=== PATIENT | female | born 1985 | race American Indian/Alaskan Native ===

== ENCOUNTER 2017-07-06 20:09 | Emergency (ER) | payer MEDICAID ==
[2017-07-06 20:21] VITALS: BP 155/99
[2017-07-06] MEDS ORDERED: MOTRIN PO ONE (20:37)
== END 2017-07-07 00:50 | disposition left against medical advice (07) ==
LOC: ED 20:09
DX: J02.9 Acute pharyngitis, unspecified (principal); Z53.21 Procedure and treatment not carried out due to patient leaving prior to being seen by health care provider
CPT/HCPCS: 87116; 87430

== ENCOUNTER 2017-07-08 16:59 | Emergency (ER) | payer MEDICAID ==
[2017-07-08 17:07] VITALS: BP 143/91
--- NOTE | 2017-07-08 18:23 | Emergency Department Report ---
Blank Doc - Documentation Documentation: Patient is a 32-year-old female presenting with several days of sore throat. Patient states hurts to swallow. Patient has had minimal cough productive of yellow sputum once. Denies any fever body aches. Rapid strep be performed.
--- NOTE | 2017-07-08 18:57 | Emergency Department Report ---
ED ENT HPI - General Chief complaint: Sore Throat Stated complaint: SORE THROAT Time Seen by Provider: 07/08/17 18:14 Source: patient Mode of arrival: Ambulatory Limitations: No Limitations - History of Present Illness Initial comments: This is a 32-year-old female nontoxic, well nourished in appearance, no acute signs of distress presents to the ED with c/o of sore throat x4 days. Patient describes sore throat as aching with level of 8/10. Patient denies any drooling , hoarseness, fever, chills, nausea, vomiting, headache, stiff neck, numbness, tingling. She denies any allergies. Past medical history includes diabetes and hypertension. MD complaint: sore throat -: days(s) (4) Location: throat Severity: mild Severity scale (0 -10): 8 Quality: aching Consistency: constant Improves with: none Worsens with: swallowing Associated Symptoms: pain with swallowing, sore throat. denies: fever, cough, gum swelling, toothache, tinnitus, hearing loss, discharge from ear, rhinorrhea - Related Data Home Medications Medication Instructions Recorded Confirmed Last Taken Lisinopril [Zestril] 10 mg PO QDAY 01/22/13 07/28/13 Unknown metFORMIN [Glucophage] 07/28/13 07/28/13 Unknown Previous Rx's Medication Instructions Recorded Last Taken Type Ibuprofen [Motrin] 600 mg PO Q8H PRN #20 tablet 07/28/13 Unknown Rx Penicillin Vk [Veetids TAB] 2 tab PO BID #40 tablet 07/28/13 Unknown Rx Amoxicillin/K Clav Tab [Augmentin 1 tab PO Q12HR #20 tab 07/08/17 Unknown Rx 875 mg] Nystas/Diphen/Xyl Visc/Mylanta 30 ml PO Q6H PRN 10 Days ml 07/08/17 Unknown Rx [Magic Mouthwash] Allergies Allergy/AdvReac Type Severity Reaction Status Date / Time No Known Allergies Allergy Verified 07/08/17 17:06 ED Dental HPI - General Chief complaint: Sore Throat Stated complaint: SORE THROAT Time Seen by Provider: 07/08/17 18:14 Source: patient Mode of arrival: Ambulatory Limitations: No Limitations - Related Data Home Medications Medication Instructions Recorded Confirmed Last Taken Lisinopril [Zestril] 10 mg PO QDAY 01/22/13 07/28/13 Unknown metFORMIN [Glucophage] 07/28/13 07/28/13 Unknown Previous Rx's Medication Instructions Recorded Last Taken Type Ibuprofen [Motrin] 600 mg PO Q8H PRN #20 tablet 07/28/13 Unknown Rx Penicillin Vk [Veetids TAB] 2 tab PO BID #40 tablet 07/28/13 Unknown Rx Amoxicillin/K Clav Tab [Augmentin 1 tab PO Q12HR #20 tab 07/08/17 Unknown Rx 875 mg] Nystas/Diphen/Xyl Visc/Mylanta 30 ml PO Q6H PRN 10 Days ml 07/08/17 Unknown Rx [Magic Mouthwash] Allergies Allergy/AdvReac Type Severity Reaction Status Date / Time No Known Allergies Allergy Verified 07/08/17 17:06 ED Review of Systems ROS: Stated complaint: SORE THROAT Other details as noted in HPI Constitutional: denies: chills, fever Eyes: denies: eye pain, eye discharge, vision change ENT: throat pain. denies: ear pain Respiratory: denies: cough, shortness of breath, wheezing Cardiovascular: denies: chest pain, palpitations Endocrine: no symptoms reported Gastrointestinal: denies: abdominal pain, nausea, diarrhea Genitourinary: denies: urgency, dysuria, discharge Musculoskeletal: denies: back pain, joint swelling, arthralgia Skin: denies: rash, lesions Neurological: denies: headache, weakness, paresthesias Psychiatric: denies: anxiety, depression Hematological/Lymphatic: denies: easy bleeding, easy bruising ED Past Medical Hx - Past Medical History Previous Medical History?: No Hx Hypertension: Yes Hx Diabetes: Yes (gestational) - Surgical History Additional Surgical History: c section - Social History Smoking Status: Never Smoker Substance Use Type: None - Medications Home Medications: Home Medications Medication Instructions Recorded Confirmed Last Taken Type Lisinopril [Zestril] 10 mg PO QDAY 01/22/13 07/28/13 Unknown History Ibuprofen [Motrin] 600 mg PO Q8H PRN #20 tablet 07/28/13 Unknown Rx Penicillin Vk [Veetids TAB] 2 tab PO BID #40 tablet 07/28/13 Unknown Rx metFORMIN [Glucophage] 07/28/13 07/28/13 Unknown History Amoxicillin/K Clav Tab [Augmentin 1 tab PO Q12HR #20 tab 07/08/17 Unknown Rx 875 mg] Nystas/Diphen/Xyl Visc/Mylanta 30 ml PO Q6H PRN 10 Days ml 07/08/17 Unknown Rx [Magic Mouthwash] ED Physical Exam - General Limitations: No Limitations General appearance: alert, in no apparent distress - Head Head exam: Present: atraumatic, normocephalic - Eye Eye exam: Present: normal appearance Pupils: Present: normal accommodation - ENT ENT exam: Present: mucous membranes moist, TM's normal bilaterally, normal external ear exam - Expanded ENT Exam Expanded Ear exam: Present: normal external inspection Mouth exam: Present: normal external inspection, tongue normal. Absent: drooling, trismus, muffled voice, tongue elevation, laceration Teeth exam: Present: normal inspection Throat exam: Positive: tonsillar erythema, tonsillomegaly (2+), tonsillar exudate, other (uvula midline. No abscess or swelling. ). Negative: R peritonsillar mass, L peritonsillar mass - Neck Neck exam: Present: normal inspection, full ROM, lymphadenopathy (bialteral tonsils). Absent: tenderness, meningismus, thyromegaly - Respiratory Respiratory exam: Present: normal lung sounds bilaterally. Absent: respiratory distress, wheezes, rales, rhonchi, stridor, chest wall tenderness, accessory muscle use, decreased breath sounds, prolonged expiratory - Cardiovascular Cardiovascular Exam: Present: regular rate, normal rhythm, normal heart sounds. Absent: irregular rhythm, systolic murmur, diastolic murmur, rubs, gallop - GI/Abdominal GI/Abdominal exam: Present: soft, normal bowel sounds. Absent: distended, tenderness, guarding, rebound, rigid, diminished bowel sounds - Rectal Rectal exam: Present: deferred - Extremities Exam Extremities exam: Present: normal inspection, full ROM, normal capillary refill. Absent: tenderness, pedal edema, joint swelling, calf tenderness - Back Exam Back exam: Present: normal inspection, full ROM. Absent: tenderness, CVA tenderness (R), CVA tenderness (L), muscle spasm, paraspinal tenderness, vertebral tenderness, rash noted - Neurological Exam Neurological exam: Present: alert, oriented X3, CN II-XII intact, normal gait, reflexes normal - Psychiatric Psychiatric exam: Present: normal affect, normal mood - Skin Skin exam: Present: warm, dry, intact, normal color. Absent: rash ED Course Vital Signs 07/08/17 17:06 Temperature 98.3 F Pulse Rate 92 H Respiratory 18 Rate Blood Pressure 143/91 O2 Sat by Pulse 98 Oximetry - Reevaluation(s) Reevaluation #1: 07/08/17 18:57 Patient is speaking in full sentences with no signs of distress noted. - Consultations Consultation #1: 07/08/17 18:58 Patient has been consulted with Dr. Vera about patient history, physical exam , and labs and examined and screened patient and agrees to ED plan of care and discharge plan of care. ED Medical Decision Making - Medical Decision Making this is a 32-year-old female that presents with tonsillitis or exudate. Patient is stable and was examined by me. Patient received viscous lidocaine in the ED. Strep test obtained negative. But due to patient having tonsillitis with exudate also treat patient with Augmentin. There is no tonsillar swelling or abscess upon examination. Patient was instructed to Follow-up with a primary care doctor in 3-5 days or if symptoms worsen and continue return to emergency room as soon as possible. At time of discharge, the patient does not seem toxic or ill in appearance. No acute signs of distress noted. Patient agrees to discharge treatment plan of care. No further questions noted by the patient. Critical care attestation.: If time is entered above; I have spent that time in minutes in the direct care of this critically ill patient, excluding procedure time. ED Disposition Clinical Impression: Tonsillitis with exudate Disposition: DC-01 TO HOME OR SELFCARE Is pt being admited?: No Does the pt Need Aspirin: No Condition: Stable Instructions: Tonsillitis (ED), Amoxicillin/Clavulanate Potassium (By mouth) Additional Instructions: Follow-up with a primary care doctor in 3-5 days or if symptoms worsen and continue return to emergency room as soon as possible. Prescriptions: Amoxicillin/K Clav Tab [Augmentin 875 mg] 1 tab PO Q12HR #20 tab Nystas/Diphen/Xyl Visc/Mylanta [Magic Mouthwash] 30 ml PO Q6H PRN 10 Days ml PRN Reason: Sore Throat Referrals: PRIMARY CARE, [Primary Care Provider] - 3-5 Days KYRA KLEIN MD [Staff Physician] - 3-5 Days [facility] [Outside] - 3-5 Days [facility] [Outside] - 3-5 Days Forms: Work/School Release Form(ED)
[2017-07-08] MEDS ORDERED: LIDOCAINE VISCOUS 2% PO ONE (18:59)
[2017-07-08] MEDS ORDERED: MOTRIN PO ONE (18:59)
== END 2017-07-08 19:16 | disposition home or self-care (01) ==
LOC: ED 16:59
DX: J03.90 Acute tonsillitis, unspecified (principal); E11.9 Type 2 diabetes mellitus without complications; I10 Essential (primary) hypertension
CPT/HCPCS: 87116; 87430; 99283

== ENCOUNTER 2018-01-20 11:47 | Emergency (ER) | payer MEDICAID ==
[2018-01-20 11:56] VITALS: BP 168/101
== END 2018-01-20 13:30 | disposition left against medical advice (07) ==
LOC: ED 11:47
DX: M79.645 Pain in left finger(s) (principal); Z53.21 Procedure and treatment not carried out due to patient leaving prior to being seen by health care provider

== ENCOUNTER 2018-10-24 19:52 | Emergency (ER) | payer MEDICAID ==
[2018-10-24 20:45] VITALS: BP 173/113
--- NOTE | 2018-10-24 20:48 | Event Note ---
ED Screening Note Date of service: 10/24/18 Time: 20:44 ED Screening Note: 33 y/o female c/o left side of face . Elevated blood pressure 212/136. Tylenol 975mg This initial assessment/diagnostic orders/clinical plan/treatment(s) is/are subject to change based on patients health status, clinical progression and re- assessment by fellow clinical providers in the ED. Further treatment and workup at subsequent clinical providers discretion. Patient/guardian urged not to elope from the ED as their condition may be serious if not clinically assessed and managed. Initial orders include:
[2018-10-24] MEDS ORDERED: TYLENOL ONE (20:49)
[2018-10-24] MEDS ORDERED: TYLENOL PO ONE (20:56)
== END 2018-10-24 21:05 | disposition left against medical advice (07) ==
LOC: ED 19:52
DX: R03.0 Elevated blood-pressure reading, without diagnosis of hypertension (principal); Z53.21 Procedure and treatment not carried out due to patient leaving prior to being seen by health care provider

== ENCOUNTER 2021-09-17 19:32 | Emergency (ER) | payer SELFPAY ==
[2021-09-17 20:11] VITALS: BP 134/93
--- NOTE | 2021-09-17 20:55 | Emergency Department Report ---
ED General Adult HPI - General Chief complaint: Sore Throat Stated complaint: SORE THROAT Source: patient Mode of arrival: Ambulatory Limitations: No Limitations - History of Present Illness Initial comments: Patient is a 36-year-old -[place] female with a history of morbid obesity, hypertension and wun-[id number]-tobqebfur diabetes who presents to the ED with complaint of acute onset persistent nasal and sinus congestion, sore throat and swollen tonsils for the last 3 days. Patient states that her symptoms have worsened in the last 24 hours. Patient denies dizziness, syncope, chest pain or shortness of breath, nausea and vomiting, diarrhea, abdominal pain, dysuria, urinary frequency and urgency, change in vision, wheezing, lightheadedness and palpitations. MD Complaint: sore throat, nasal and sinus congestion, body aches and pains -: Sudden, days(s) (3) Location: head, chest Radiation: non-radiation Severity scale (0 -10): 4 Quality: aching, dull Consistency: intermittent Improves with: none Worsens with: none Associated Symptoms: denies other symptoms, cough, loss of appetite, malaise. denies: confusion, chest pain, diaphoresis, fever/chills, headaches, nausea/vomiting, rash, seizure, shortness of breath, syncope, weakness Treatments Prior to Arrival: none - Related Data Home Medications Medication Instructions Recorded Confirmed Last Taken lisinopriL [Zestril] 10 mg PO QDAY 01/22/13 07/28/13 Unknown metFORMIN [Glucophage] 07/28/13 07/28/13 Unknown Previous Rx's Medication Instructions Recorded Last Taken Type Penicillin Vk [Veetids TAB] 2 tab PO BID #40 tablet 07/28/13 Unknown Rx Amoxicillin/K Clav Tab [Augmentin 1 tab PO Q12HR #20 tab 07/08/17 Unknown Rx 875 mg] Nystas/Diphen/Xyl Visc/Mylanta 30 ml PO Q6H PRN 10 Days ml 07/08/17 Unknown Rx [Magic Mouthwash] cephALEXin [Keflex] 500 mg PO Q8HR #30 cap 10/24/18 Unknown Rx Azithromycin [Zithromax Z-DESIREE] 250 mg PO DAILY #6 tab 09/17/21 Unknown Rx Ibuprofen [Motrin 600 MG tab] 600 mg PO Q8H PRN #30 tablet 09/17/21 Unknown Rx Allergies Allergy/AdvReac Type Severity Reaction Status Date / Time No Known Allergies Allergy Verified 01/20/18 11:53 ED Review of Systems ROS: Stated complaint: SORE THROAT Other details as noted in HPI Constitutional: denies: chills, fever Eyes: denies: eye pain, eye discharge, vision change ENT: throat pain, congestion. denies: ear pain Respiratory: cough. denies: shortness of breath, wheezing Cardiovascular: denies: chest pain, palpitations Endocrine: no symptoms reported Gastrointestinal: denies: abdominal pain, nausea, vomiting, diarrhea Genitourinary: denies: urgency, dysuria, discharge Musculoskeletal: denies: back pain, joint swelling, arthralgia Skin: denies: rash, lesions Neurological: headache. denies: weakness, paresthesias Psychiatric: denies: anxiety, depression Hematological/Lymphatic: denies: easy bleeding, easy bruising ED Past Medical Hx - Past Medical History Hx Hypertension: Yes (GESTATIONAL) Hx Diabetes: Yes - Surgical History Additional Surgical History: c section - Social History Smoking Status: Never Smoker Substance Use Type: None - Medications Home Medications: Home Medications Medication Instructions Recorded Confirmed Last Taken Type lisinopriL [Zestril] 10 mg PO QDAY 01/22/13 07/28/13 Unknown History Penicillin Vk [Veetids TAB] 2 tab PO BID #40 tablet 07/28/13 Unknown Rx metFORMIN [Glucophage] 07/28/13 07/28/13 Unknown History Amoxicillin/K Clav Tab [Augmentin 1 tab PO Q12HR #20 tab 07/08/17 Unknown Rx 875 mg] Nystas/Diphen/Xyl Visc/Mylanta 30 ml PO Q6H PRN 10 Days ml 07/08/17 Unknown Rx [Magic Mouthwash] cephALEXin [Keflex] 500 mg PO Q8HR #30 cap 10/24/18 Unknown Rx Azithromycin [Zithromax Z-DESIREE] 250 mg PO DAILY #6 tab 09/17/21 Unknown Rx Ibuprofen [Motrin 600 MG tab] 600 mg PO Q8H PRN #30 tablet 09/17/21 Unknown Rx ED Physical Exam - General Limitations: No Limitations General appearance: alert, in no apparent distress - Head Head exam: Present: atraumatic, normocephalic, normal inspection - Eye Eye exam: Present: normal appearance, PERRL, EOMI Pupils: Present: normal accommodation - ENT ENT exam: Present: mucous membranes moist, TM's normal bilaterally, normal external ear exam, other (Grossly congested nasal passages; mild erythematous oropharynx and swollen left tonsils with patchy exudates) - Neck Neck exam: Present: normal inspection, full ROM, lymphadenopathy (Anterior left cervical lymphadenopathy) - Respiratory Respiratory exam: Present: normal lung sounds bilaterally. Absent: respiratory distress, wheezes, rales, rhonchi, chest wall tenderness, accessory muscle use, decreased breath sounds - Cardiovascular Cardiovascular Exam: Present: regular rate, normal rhythm, normal heart sounds. Absent: systolic murmur, diastolic murmur, rubs, gallop - GI/Abdominal GI/Abdominal exam: Present: soft, normal bowel sounds. Absent: tenderness, guarding, rebound, hyperactive bowel sounds, hypoactive bowel sounds, organomegaly, mass - Extremities Exam Extremities exam: Present: normal inspection, full ROM, normal capillary refill - Back Exam Back exam: Present: normal inspection, full ROM. Absent: tenderness, CVA tenderness (R), CVA tenderness (L), muscle spasm, paraspinal tenderness - Neurological Exam Neurological exam: Present: alert, oriented X3, CN II-XII intact, normal gait, reflexes normal - Psychiatric Psychiatric exam: Present: normal affect, normal mood - Skin Skin exam: Present: warm, dry, intact, normal color. Absent: rash ED Course Vital Signs 09/17/21 20:09 Temperature 98.9 F Pulse Rate 90 Respiratory 16 Rate Blood Pressure 134/93 [Right] O2 Sat by Pulse 97 Oximetry ED Medical Decision Making - Medical Decision Making This is a 36-year-old -[place] female with a history of morbid obesity, hypertension and utv-rzpbxya-ycigvisie diabetes who presents to the ED with complaint of acute onset persistent nasal and sinus congestion, sore throat and swollen tonsils for the last 3 days. Patient states that her symptoms have worsened in the last 24 hours. In the ED, patient is alert and oriented x3 and is not in any distress. Patient the history and physical exam findings, the patient was discharged home on medications and advised to follow-up with her primary care physician in 7 to 10 days for reevaluation or return to the ED immediately if symptoms get worse with - Differential Diagnosis Bacterial pharyngitis; bacterial tonsillitis; URI; bronchitis; Critical care attestation.: If time is entered above; I have spent that time in minutes in the direct care of this critically ill patient, excluding procedure time. ED Disposition Clinical Impression: Acute upper respiratory infection Acute tonsillitis Qualifiers: Pharyngitis/tonsillitis etiology: other specified organisms Qualified Code(s): J03.80 - Acute tonsillitis due to other specified organisms; J03.8 - Acute tonsillitis due to other specified organisms Disposition: 01 HOME / SELF CARE / HOMELESS Is pt being admited?: No Does the pt Need Aspirin: No Condition: Stable Instructions: Upper Respiratory Infection, Adult, [id number], Tonsillitis, [id number] Additional Instructions: Take medication with food, drink plenty of fluids and follow-up with your primary care physician in 7 to 10 days for reevaluation. Return to the ED immediately if symptoms get worse Prescriptions: Ibuprofen [Motrin 600 MG tab] 600 mg PO Q8H PRN #30 tablet PRN Reason: Pain Azithromycin [Zithromax Z-DESIREE] 250 mg PO DAILY #6 tab Referrals: [facility] [Provider Group] - 7-10 days Forms: Work/School Release Form(ED) Time of Disposition: 20:55 Print Language: FAROESE
== END 2021-09-17 21:37 | disposition home or self-care (01) ==
LOC: ED 19:32
DX: J06.9 Acute upper respiratory infection, unspecified (principal); J03.90 Acute tonsillitis, unspecified; E11.9 Type 2 diabetes mellitus without complications; I10 Essential (primary) hypertension; Z98.890 Other specified postprocedural states; Z79.899 Other long term (current) drug therapy
CPT/HCPCS: 99282